=== PATIENT | female | born 1960 | race Two or more races ===

== ENCOUNTER 2017-11-27 16:06 | Outpatient (CLI) | payer OTHER | END 2017-11-27 17:00 | disposition home or self-care (01) | LOC: MAMO-SONO 16:06 | DX: Z12.31 Encounter for screening mammogram for malignant neoplasm of breast (principal); N60.11 Diffuse cystic mastopathy of right breast; N60.12 Diffuse cystic mastopathy of left breast ==

== ENCOUNTER 2018-07-08 14:59 | Outpatient (CLI) | payer OTHER | END 2018-07-08 15:37 | disposition home or self-care (01) | LOC: SONOGRAMA 14:59 | DX: N64.4 Mastodynia (principal) ==

== ENCOUNTER 2018-12-23 11:40 | Outpatient (CLI) | payer OTHER | END 2018-12-23 12:15 | disposition home or self-care (01) | LOC: NUCLEAR 11:40 | DX: M81.0 Age-related osteoporosis without current pathological fracture (principal) ==

== ENCOUNTER 2018-12-23 11:53 | Outpatient (CLI) | payer OTHER | END 2018-12-23 11:59 | disposition home or self-care (01) | LOC: SONOGRAMA 11:53 | DX: E03.8 Other specified hypothyroidism (principal); Z00.00 Encounter for general adult medical examination without abnormal findings ==

== ENCOUNTER 2021-05-11 11:59 | Outpatient (CLI) | payer OTHER | END 2021-05-11 12:13 | disposition home or self-care (01) | LOC: MAMO-SONO 11:59 | PROVIDERS: ATTEND Obstetrics & Gynecology | DX: N60.11 Diffuse cystic mastopathy of right breast (principal); N60.12 Diffuse cystic mastopathy of left breast; Z12.31 Encounter for screening mammogram for malignant neoplasm of breast ==

== ENCOUNTER 2024-08-25 13:35 | Outpatient (CLI) | payer OTHER | END 2024-08-25 13:39 | disposition home or self-care (01) | LOC: MAMO-SONO 13:35 | PROVIDERS: ATTEND Obstetrics & Gynecology | DX: M54.2 Cervicalgia (principal); M54.6 Pain in thoracic spine; M54.51 Vertebrogenic low back pain; N60.11 Diffuse cystic mastopathy of right breast; N60.12 Diffuse cystic mastopathy of left breast; Z12.31 Encounter for screening mammogram for malignant neoplasm of breast ==